=== PATIENT | female | born 1965 | race Caucasian/White ===

== ENCOUNTER 2018-01-13 17:05 | Emergency (ER) | END 2018-01-13 23:26 | disposition home or self-care (01) ==

== ENCOUNTER 2018-10-29 07:04 | Emergency (ER) | payer BC, OTHER ==
[~2018-10-29] VITALS: Ht 162.6 cm; Wt 72.7 kg
[~2018-10-29 07:04] MED LIST: AMOX1TAB10 PO
[2018-10-29 07:12] VITALS: Ht 162.6 cm; Wt 72.7 kg
--- NOTE | 2018-10-29 10:16 | ERD ---
ER Documentation Chief Complaint Chief Complaint acute on chronic tooth pain, chest pain and sob for one year, HPI This is a 53-year-old female presenting for multiple complaints. 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 The patient reports that she is seen multiple specialists for all these problems, but she has not been diagnosed with anything specific. She endorses worsening right lower jaw pain and she is concerned that she could have an infection in the jaw. She believes that the infection is now spreading throughout her entire body. The patient also reports chronic chest pain, ongoing for almost a year. Her pain is exacerbated by movement and palpation. The patient is unable to describe any exacerbating or new symptoms today. The patient denies feeling sick recently. The patient denies fever or chills. The patient has had no headache or vision changes. The patient has chronic neck and back pain due to reported arthritis. The patient denies lightheadedness or dizziness. The patient has no trouble breathing. The patient denies nausea or vomiting. The patient denies abdominal pain. The patient denies changes to bowel movements or urination. The patient has had no focal deficits. The patient has had no weakness or numbness or tingling to the face or extremities. ROS All systems reviewed and are negative except as per history of present illness. Medications Home Meds Active Scripts Ibuprofen* (Motrin*) 600 Mg Tab, 600 MG PO Q6H PRN for PAIN AND OR ELEVATED TEMP, #30 TAB Prov:EUNICE KYLE MD 10/29/18 Prednisone (Prednisone) 20 Mg Tab, 40 MG PO DAILY for 4 Days, TAB Prov:KARL KEANE MD 10/29/18 Ibuprofen* (Motrin*) 600 Mg Tab, 600 MG PO Q6H PRN for PAIN AND/OR INFLAMMATION, #30 TAB Prov:KARL KEANE MD 10/29/18 Amoxicillin/Potassium Clav (Amox-Clav 875-125 mg Tablet) 875-125 mg Tab, 1 TAB PO BID for 10 Days, #20 TAB Prov:MARICHUY TELLO 01/13/18 Allergies Allergies: Coded Allergies: clindamycin (Unverified Allergy, Unknown, 10/29/18) PMhx/Soc Medical and Surgical Hx: pt denies Medical Hx, pt denies Surgical Hx History of Surgery: No Anesthesia Reaction: No Hx Neurological Disorder: No Hx Respiratory Disorders: No Hx Cardiac Disorders: No Hx Psychiatric Problems: No Hx Miscellaneous Medical Probl: No Hx Alcohol Use: Yes Hx Substance Use: Yes Hx Tobacco Use: Yes Smoking Status: Never smoker FmHx Family History: No diabetes Physical Exam Vitals Vital Signs Date Temp Pulse Resp B/P (MAP) Pulse Ox O2 O2 Flow FiO2 Time Delivery Rate 10/29/18 88 20 109/66 97 Room Air 10:54 (80) 10/29/18 97.5 81 20 112/64 96 07:12 (80) Physical Exam Const: No apparent distress, well-developed, well-nourished Head: Normocephalic, Atraumatic Eyes: Normal Conjunctiva. Extraocular movements intact. Pupils equal, round and reactive to light ENT: Normal External Ears, Nose and Mouth. A few missing teeth but otherwise normal dentition. No erythema or edema or induration or purulence or fluctuance to the gum or face. Normal oropharynx. Neck: Full range of motion. No meningismus. No anterior cervical or submandibular lymphadenopathy. Resp: Clear to auscultation bilaterally, No wheezes, rales or rhonchi Cardio: Regular rate and rhythm. No murmurs, rubs or gallops Abd: Soft, non tender, non distended. Normal bowel sounds Skin: No petechiae or rashes Back: No midline tenderness. No CVA tenderness Ext: No cyanosis, or edema Neur: Awake and alert, oriented 4. Cranial nerves intact. No facial droop. Normal strength, sensation and coordination. Psych: Odd affect Procedures/MDM MDM The patient's presentation warrants further investigation. Previous medical josette rds, if available, were reviewed. EKG EKG read by me: Rate/Rhythm: Regular rate and rhythm at a rate of 80 bpm Intervals: Normal Lambert: Left axis deviation Impression: No evidence of acute ischemia or arrhythmia TREATMENT/DISPOSITION The patient was evaluated fully. I do not see any evidence of an ENT emergency. There is no evidence of pharyngitis or retropharyngeal abscess or peritonsillar abscess. I do not have any suspicion for a dental infection. There is no evidence of soft tissue abscess or Ranjan's angina or other deep space infection. There is no lymphadenopathy. The patient also endorses chronic chest pain. The patient's EKG is normal. The patient's vital signs are normal. The patient's cardiovascular exam is normal. The patient's pulmonary exam is also normal. I have very low suspicion for a cardiopulmonary process. I do not suspect acute coronary syndrome. The patient's lungs are clear and I do not suspect pneumonia or pneumothorax or pleural effusions or pulmonary edema. The patient does not have signs or symptoms concerning for thoracic aortic aneurysm or dissection. The patient does not have pneumomediastinum or signs concerning for esophageal tear or rupture. The patient has no clinical signs of pericardial effusion or tamponade. The patient does not have pneumoperitoneum and I have decreased suspicion of viscus perforation as possible referred pain. The patient does not have a history of heart failure and I have low suspicion for this. The patient does not have a diagnosis of COPD and is not wheezing today. The patient is not tachypneic or hypoxic. The patient is breathing comfortably and without pleuritic pain. The patient is not on hormonal therapy. The patient has no history of clotting or bleeding disorders. The patient has no calf tenderness. The patient has had no hemoptysis. I have decreased suspicion for PE. The patient requires outpatient follow-up for her chronic disease processes. Why do not see any evidence of an acute emergent pathology today, the patient's pain could be inflammatory or neuropathic in nature. The patient may benefit from a short course of steroids which will be provided as a prescription. The patient will also be provided ibuprofen as a prescription. I do not feel that further workup is warranted at this time. DISCHARGE No emergent diagnoses were identified. At this time, I feel that the patient stable for discharge. The patient was instructed to follow-up with a primary care physician in 1-3 days. The patient will be given strict precautions with which to return to the emergency department. Prescriptions: Ibuprofen, prednisone Disclaimer: Inadvertent spelling and grammatical errors are likely due to EHR/dictation software use and do not reflect on the overall quality of patient care. Note that the electronic time recorded on this note does not necessarily reflect the actual time of the patient encounter. Departure Diagnosis: Primary Impression: Multiple complaints Additional Impressions: Chronic pain Chronic pain type: chronic pain syndrome Qualified Codes: G89.4 - Chronic pain syndrome Otalgia Laterality: unspecified laterality Qualified Codes: H92.09 - Otalgia, unspecified ear Mouth pain Nonspecific chest pain Condition: AKRL Encinas MD Oct 29, 2018 10:16
[2018-10-29] MEDS ORDERED: PRED20TA PO (10:18)
[2018-10-29] MEDS ORDERED: IBUP-1542 PO ×2 (10:18→14:23)
[2018-10-29 10:54] VITALS: BP 109/66; PULSE 88; RESP 20
== END 2018-10-29 11:05 | disposition home or self-care (01) ==
LOC: E/R 07:04
DX: H92.09 Otalgia, unspecified ear (principal); K13.79 Other lesions of oral mucosa
CPT/HCPCS: 99283

== ENCOUNTER 2018-10-29 12:37 | Emergency (ER) | payer BC ==
[~2018-10-29] VITALS: Ht 167.6 cm; Wt 72.8 kg
[~2018-10-29 12:37] MED LIST changes: +IBUP-1542 PO; +PRED20TA PO
[2018-10-29 12:56] VITALS: BP 126/75; PULSE 65; RESP 20; Ht 167.6 cm; Wt 72.8 kg
[2018-10-29] MEDS ORDERED: IBUP-1542 PO (14:23)
--- NOTE | 2018-10-29 14:43 | ERD ---
ER Documentation Chief Complaint Chief Complaint Complains of chest pain HPI Patient is a 53-year-old female with no medical problems who presents with chest pain. She said that it started in December 2017. She says "I feel like the in fection in my tooth is now going into my body". She says "it is wrecking havoc on my whole body". She said that she has had chest pain for the past few months. She was seen earlier this morning for the same but did not have a workup and came back requesting laboratory studies. She says the pain is worse with laying down with palpation. She has tried ibuprofen for this in the past. Upon review of old medical records this is the patient's third visit to the ER since December 2017. She does not currently have a primary doctor. ROS All systems reviewed and are negative except as per history of present illness. Medications Home Meds Active Scripts Ibuprofen* (Motrin*) 600 Mg Tab, 600 MG PO Q6H PRN for PAIN AND OR ELEVATED TEMP, #30 TAB Prov:EUNICE KYLE MD 10/29/18 Prednisone (Prednisone) 20 Mg Tab, 40 MG PO DAILY for 4 Days, TAB Prov:KARL KEANE MD 10/29/18 Ibuprofen* (Motrin*) 600 Mg Tab, 600 MG PO Q6H PRN for PAIN AND/OR INFLAMMATION, #30 TAB Prov:KARL KEANE MD 10/29/18 Amoxicillin/Potassium Clav (Amox-Clav 875-125 mg Tablet) 875-125 mg Tab, 1 TAB PO BID for 10 Days, #20 TAB Prov:MARICHUY TELLO 01/13/18 Allergies Allergies: Coded Allergies: clindamycin (Unverified Allergy, Unknown, 10/29/18) PMhx/Soc History of Surgery: No Anesthesia Reaction: No Hx Neurological Disorder: No Hx Respiratory Disorders: No Hx Cardiac Disorders: No Hx Psychiatric Problems: No Hx Miscellaneous Medical Probl: No Hx Alcohol Use: Yes Hx Substance Use: No (marijuana) Hx Tobacco Use: Yes Smoking Status: Current every day smoker FmHx Family History: No coronary disease Physical Exam Vitals Vital Signs Date Temp Pulse Resp B/P (MAP) Pulse Ox O2 O2 Flow FiO2 Time Delivery Rate 10/29/18 98.4 65 20 126/75 100 12:56 (92) Physical Exam Const: No acute distress Head: Atraumatic Eyes: Normal Conjunctiva ENT: Normal External Ears, Nose and Mouth., No sign of dental infection to the right mandibular area where she said the infection was previously. Neck: Full range of motion. No meningismus. Resp: Clear to auscultation bilaterally Cardio: Regular rate and rhythm, no murmurs Abd: Soft, non tender, non distended. Normal bowel sounds Skin: No petechiae or rashes Back: No midline or flank tenderness Ext: No cyanosis, or edema Neur: Awake and alert Psych: Normal Mood and Affect Result Diagram: 10/29/18 1342 10/29/18 1342 Results 24 hrs Laboratory Tests Test 10/29/18 13:42 White Blood Count 7.2 10^3/ul Red Blood Count 5.15 10^6/ul Hemoglobin 14.2 g/dl Hematocrit 43.7 % Mean Corpuscular Volume 84.9 fl Mean Corpuscular Hemoglobin 27.6 pg Mean Corpuscular Hemoglobin Concent 32.5 g/dl Red Cell Distribution Width 13.4 % Platelet Count 254 10^3/UL Mean Platelet Volume 9.9 fl Immature Granulocytes % 0.300 % Neutrophils % 68.2 % Lymphocytes % 18.1 % Monocytes % 12.6 % Eosinophils % 0.4 % Basophils % 0.4 % Nucleated Red Blood Cells % 0.0 /100WBC Immature Granulocytes # 0.020 10^3/ul Neutrophils # 4.9 10^3/ul Lymphocytes # 1.3 10^3/ul Monocytes # 0.9 10^3/ul Eosinophils # 0.0 10^3/ul Basophils # 0.0 10^3/ul Nucleated Red Blood Cells # 0.0 10^3/ul Sodium Level 141 mmol/L Potassium Level 3.9 mmol/L Chloride Level 103 mmol/L Carbon Dioxide Level 27 mmol/L Anion Gap 11 Blood Urea Nitrogen 12 mg/dl Creatinine 0.77 mg/dl Est Glomerular Filtrat Rate mL/min > 60 mL/min Glucose Level 99 mg/dl Calcium Level 9.7 mg/dl Troponin I < 0.012 ng/ml Procedures/MDM 53-year-old female who presents with chest pain. She refused repeat EKG or chest x-ray. Laboratory studies are completely normal. I doubt serious bacterial infection. I doubt acute coronary syndrome, pneumonia, pneumothorax, pulmonary embolism, or aortic dissection. The patient will be discharged and will need to follow-up closely with the local clinics within 24-48 hours. She can return for any worsening symptoms. She was provided copies of her laboratory studies prior to discharge. Departure Diagnosis: Primary Impression: Chest pain Chest pain type: unspecified Qualified Codes: R07.9 - Chest pain, unsp ecified Condition: Fair Patient Instructions: Chest Pain, Uncertain Cause Referrals: COMMUNITY CLINICS YOU HAVE RECEIVED A MEDICAL SCREENING EXAM AND THE RESULTS INDICATE THAT YOU DO NOT HAVE A CONDITION THAT REQUIRES URGENT TREATMENT IN THE EMERGENCY DEPARTMENT. FURTHER EVALUATION AND TREATMENT OF YOUR CONDITION CAN WAIT UNTIL YOU ARE SEEN IN YOUR DOCTORS OFFICE WITHIN THE NEXT 1-2 DAYS. IT IS YOUR RESPONSIBILITY TO MAKE AN APPOINTMENT FOR FOLOW-UP CARE. IF YOU HAVE A PRIMARY DOCTOR --you should call your primary doctor and schedule an appointment IF YOU DO NOT HAVE A PRIMARY DOCTOR YOU CAN CALL OUR PHYSICIAN REFERRAL HOTLINE AT IF YOU CAN NOT AFFORD TO SEE A PHYSICIAN YOU CAN CHOSE FROM THE FOLLOWING [facility] CLINICS [facility] [address] [facility] [address] [facility] [facility] [address] [facility] [address] [facility] [address] [facility] [facility]. [address] Additional Instructions: Call your primary care doctor TOMORROW for an appointment during the next 1-2 days.See the doctor sooner or return here if your condition worsens before your appointment time. EUNICE KYLE MD Oct 29, 2018 14:43
== END 2018-10-29 16:11 | disposition home or self-care (01) ==
LOC: E/R 12:37
DX: R07.9 Chest pain, unspecified (principal); F17.210 Nicotine dependence, cigarettes, uncomplicated
CPT/HCPCS: 80048; 84484; 85025